=== PATIENT | male | born 1940 | race Caucasian/White ===

== ENCOUNTER → 2017-02-27 | Outpatient (RCR) | payer MEDICARE, OTHER ==
[2016-11-29 10:43] VITALS: BP 120/65; PULSE 82; TEMP 97.3
[2016-11-30 08:05] VITALS: BP 118/51; PULSE 82; TEMP 97.5
[2016-12-04 13:03] VITALS: BP 118/49; PULSE 85; TEMP 98
[2016-12-04 13:12] LABS: HEMATOCRIT 47.9 % (42.0-52.0); HEMOGLOBIN 15.9 g/dl (13.5-18.0); MEAN CELL VOLUME 91 fl (80.0-100.0); MEAN CORPUSCULAR HEMOGLOBIN 30 pg (27.0-31.0); MEAN CORPUSCULAR HGB CONC 33 g/dl (33.0-37.0); MEAN PLATELET VOLUME 11.2 fl (7.4-10.4); PLATELET COUNT 303 K/mm3 (130-400); RED BLOOD COUNT 5.24 M/mm3 (4.20-5.60); REDCELL DISTRIBUTION WIDTH-CV 14.3 % (11.5-14.5)
[2016-12-04 14:22] LABS: BAND 7 % (0-10); LYMPHOCYTE 12 % (20.0-51.0); NEUTROPHILS 79 % (42.0-75.2); PLATELET ESTIMATE NORMAL (NORMAL)
[2016-12-11 13:31] LABS: HEMATOCRIT 39.5 % (42.0-52.0); HEMOGLOBIN 13.3 g/dl (13.5-18.0); MEAN CELL VOLUME 91 fl (80.0-100.0); MEAN CORPUSCULAR HEMOGLOBIN 31 pg (27.0-31.0); MEAN CORPUSCULAR HGB CONC 34 g/dl (33.0-37.0); MEAN PLATELET VOLUME 11.3 fl (7.4-10.4); PLATELET COUNT 160 K/mm3 (130-400); RED BLOOD COUNT 4.36 M/mm3 (4.20-5.60); REDCELL DISTRIBUTION WIDTH-CV 14.6 % (11.5-14.5)
[2016-12-11 13:49] VITALS: BP 118/53; PULSE 81; TEMP 97.5
[2016-12-11 13:57] LABS: BAND 1 % (0-10); LYMPHOCYTE 22 % (20.0-51.0); NEUTROPHILS 62 % (42.0-75.2); NUCLEATED RED BLOOD CELL 1 (0-6)
[2016-12-11 13:58] LABS: PLATELET ESTIMATE NORMAL (NORMAL)
[2016-12-18 13:07] VITALS: BP 111/50; PULSE 69; TEMP 97.3
[2016-12-18 13:21] LABS: ALBUMIN 3.4 gm/dL (3.5-5.0); BILIRUBIN,TOTAL 0.4 mg/dL (0.0-1.0); CREATININE, serum 0.96 mg/dL (0.66-1.25); MAGNESIUM 1.7 mg/dL (1.6-2.3); POTASSIUM 4.2 mmol/L (3.4-5.0); TOTAL PROTEIN 6.7 gm/dL (6.4-8.2)
[2016-12-18 13:24] LABS: HEMATOCRIT 40.8 % (42.0-52.0); HEMOGLOBIN 13.3 g/dl (13.5-18.0); MEAN CELL VOLUME 92 fl (80.0-100.0); MEAN CORPUSCULAR HEMOGLOBIN 30 pg (27.0-31.0); MEAN CORPUSCULAR HGB CONC 33 g/dl (33.0-37.0); MEAN PLATELET VOLUME 10.9 fl (7.4-10.4); PLATELET COUNT 381 K/mm3 (130-400); RED BLOOD COUNT 4.45 M/mm3 (4.20-5.60); REDCELL DISTRIBUTION WIDTH-CV 15.5 % (11.5-14.5)
[2016-12-18 19:10] LABS: BAND 6 % (0-10); EOSINOPHIL 2 % (0-4); LYMPHOCYTE 27 % (20.0-51.0); NEUTROPHILS 58 % (42.0-75.2); PLATELET ESTIMATE NORMAL (NORMAL)
[2016-12-25 13:36] VITALS: BP 104/51; PULSE 75; TEMP 97.3
[2016-12-25 14:14] LABS: HEMOGLOBIN 15.5 g/dl (13.5-18.0); MEAN CELL VOLUME 91 fl (80.0-100.0); MEAN CORPUSCULAR HEMOGLOBIN 30 pg (27.0-31.0); MEAN CORPUSCULAR HGB CONC 33 g/dl (33.0-37.0); MEAN PLATELET VOLUME 11.2 fl (7.4-10.4); PLATELET COUNT 417 K/mm3 (130-400); RED BLOOD COUNT 5.14 M/mm3 (4.20-5.60)
[2016-12-25 15:50] LABS: ANISOCYTOSIS 1+; BAND 1 % (0-10); EOSINOPHIL 2 % (0-4); LYMPHOCYTE 12 % (20.0-51.0); NEUTROPHILS 85 % (42.0-75.2); PLATELET ESTIMATE NORMAL (NORMAL)
[2017-01-01 13:09] VITALS: BP 130/54; PULSE 73; TEMP 97.4
[2017-01-01 13:11] LABS: HEMATOCRIT 39.8 % (42.0-52.0); HEMOGLOBIN 12.9 g/dl (13.5-18.0); MEAN CELL VOLUME 90 fl (80.0-100.0); MEAN CORPUSCULAR HEMOGLOBIN 29 pg (27.0-31.0); MEAN CORPUSCULAR HGB CONC 32 g/dl (33.0-37.0); MEAN PLATELET VOLUME 11.3 fl (7.4-10.4); PLATELET COUNT 144 K/mm3 (130-400); RED BLOOD COUNT 4.41 M/mm3 (4.20-5.60); REDCELL DISTRIBUTION WIDTH-CV 15.2 % (11.5-14.5)
[2017-01-01 13:39] LABS: BAND 3 % (0-10); LYMPHOCYTE 43 % (20.0-51.0); NEUTROPHILS 51 % (42.0-75.2); PLATELET ESTIMATE NORMAL (NORMAL)
[2017-01-01 13:40] LABS: HYPERSEGMENTED POLYS PRESENT
[2017-01-08 13:10] VITALS: BP 111/48; PULSE 67; TEMP 97.2
[2017-01-08 13:25] LABS: HEMATOCRIT 39.4 % (42.0-52.0); HEMOGLOBIN 12.9 g/dl (13.5-18.0); MEAN CELL VOLUME 92 fl (80.0-100.0); MEAN CORPUSCULAR HEMOGLOBIN 30 pg (27.0-31.0); MEAN CORPUSCULAR HGB CONC 33 g/dl (33.0-37.0); MEAN PLATELET VOLUME 11.1 fl (7.4-10.4); PLATELET COUNT 363 K/mm3 (130-400); RED BLOOD COUNT 4.29 M/mm3 (4.20-5.60); REDCELL DISTRIBUTION WIDTH-CV 17.2 % (11.5-14.5)
[2017-01-08 14:10] LABS: BAND 24 % (0-10); EOSINOPHIL 1 % (0-4); LYMPHOCYTE 38 % (20.0-51.0); NEUTROPHILS 32 % (42.0-75.2)
[2017-01-08 14:11] LABS: ANISOCYTOSIS 1+; PLATELET ESTIMATE NORMAL (NORMAL)
[2017-01-15 13:06] VITALS: BP 109/49; PULSE 109; TEMP 97.3
[2017-01-15 13:08] LABS: HEMATOCRIT 40.7 % (42.0-52.0); HEMOGLOBIN 13.3 g/dl (13.5-18.0); MEAN CELL VOLUME 92 fl (80.0-100.0); MEAN CORPUSCULAR HEMOGLOBIN 30 pg (27.0-31.0); MEAN CORPUSCULAR HGB CONC 33 g/dl (33.0-37.0); MEAN PLATELET VOLUME 10.7 fl (7.4-10.4); PLATELET COUNT 372 K/mm3 (130-400); RED BLOOD COUNT 4.41 M/mm3 (4.20-5.60); REDCELL DISTRIBUTION WIDTH-CV 17.7 % (11.5-14.5)
[2017-01-15 13:57] LABS: BAND 22 % (0-10); EOSINOPHIL 1 % (0-4); LYMPHOCYTE 18 % (20.0-51.0); METAMYELOCYTE 1 % (0-0); NEUTROPHILS 48 % (42.0-75.2); PLATELET ESTIMATE NORMAL (NORMAL)
[2017-01-15 13:58] LABS: ANISOCYTOSIS 1+
[2017-01-22 12:55] LABS: HEMATOCRIT 37.4 % (42.0-52.0); HEMOGLOBIN 12.3 g/dl (13.5-18.0); MEAN CELL VOLUME 93 fl (80.0-100.0); MEAN CORPUSCULAR HEMOGLOBIN 31 pg (27.0-31.0); MEAN CORPUSCULAR HGB CONC 33 g/dl (33.0-37.0); MEAN PLATELET VOLUME 11.3 fl (7.4-10.4); PLATELET COUNT 234 K/mm3 (130-400); RED BLOOD COUNT 4.02 M/mm3 (4.20-5.60); REDCELL DISTRIBUTION WIDTH-CV 17.5 % (11.5-14.5)
[2017-01-22 13:00] VITALS: BP 116/50; PULSE 71; TEMP 97.4
[2017-01-22 13:06] LABS: ALBUMIN 3.7 gm/dL (3.5-5.0); BILIRUBIN,TOTAL 0.5 mg/dL (0.0-1.0); CALCIUM 9.4 mg/dL (8.4-10.2); CREATININE, serum 0.85 mg/dL (0.66-1.25); MAGNESIUM 1.8 mg/dL (1.6-2.3); POTASSIUM 4.3 mmol/L (3.4-5.0)
[2017-01-22 13:08] LABS: BAND 7 % (0-10); EOSINOPHIL 1 % (0-4); LYMPHOCYTE 23 % (20.0-51.0); NEUTROPHILS 65 % (42.0-75.2); PLATELET ESTIMATE NORMAL (NORMAL)
[2017-01-22 13:10] LABS: ANISOCYTOSIS 1+; HYPOCHROMIA 1+
[2017-01-29 13:10] VITALS: BP 107/64; PULSE 76; TEMP 97.7
[2017-01-29 13:24] LABS: HEMATOCRIT 41.1 % (42.0-52.0); HEMOGLOBIN 13.7 g/dl (13.5-18.0); MEAN CELL VOLUME 91 fl (80.0-100.0); MEAN CORPUSCULAR HEMOGLOBIN 30 pg (27.0-31.0); MEAN CORPUSCULAR HGB CONC 33 g/dl (33.0-37.0); MEAN PLATELET VOLUME 11.1 fl (7.4-10.4); PLATELET COUNT 237 K/mm3 (130-400); RED BLOOD COUNT 4.51 M/mm3 (4.20-5.60); REDCELL DISTRIBUTION WIDTH-CV 17.1 % (11.5-14.5)
[2017-01-29 14:04] LABS: BAND 5 % (0-10); LYMPHOCYTE 18 % (20.0-51.0); NEUTROPHILS 76 % (42.0-75.2); PLATELET ESTIMATE NORMAL (NORMAL)
[2017-02-05 12:54] VITALS: BP 125/55; PULSE 71; TEMP 97.7
[2017-02-05 12:54] LABS: HEMATOCRIT 37.1 % (42.0-52.0); MEAN CELL VOLUME 94 fl (80.0-100.0); MEAN CORPUSCULAR HEMOGLOBIN 30 pg (27.0-31.0); MEAN CORPUSCULAR HGB CONC 32 g/dl (33.0-37.0); MEAN PLATELET VOLUME 10.9 fl (7.4-10.4); PLATELET COUNT 204 K/mm3 (130-400); RED BLOOD COUNT 3.95 M/mm3 (4.20-5.60); REDCELL DISTRIBUTION WIDTH-CV 17.3 % (11.5-14.5)
[2017-02-05 13:17] LABS: BAND 2 % (0-10); LYMPHOCYTE 38 % (20.0-51.0); NEUTROPHILS 54 % (42.0-75.2); NUCLEATED RED BLOOD CELL 1 (0-6); PLATELET ESTIMATE NORMAL (NORMAL)
[2017-02-05 13:18] LABS: ANISOCYTOSIS 1+; HYPOCHROMIA 1+
[2017-02-12 10:43] VITALS: BP 121/61; PULSE 58; TEMP 97.3
[2017-02-12 10:56] LABS: HEMATOCRIT 38.1 % (42.0-52.0); HEMOGLOBIN 12.4 g/dl (13.5-18.0); MEAN CELL VOLUME 96 fl (80.0-100.0); MEAN CORPUSCULAR HEMOGLOBIN 31 pg (27.0-31.0); MEAN CORPUSCULAR HGB CONC 33 g/dl (33.0-37.0); MEAN PLATELET VOLUME 10.8 fl (7.4-10.4); PLATELET COUNT 456 K/mm3 (130-400); RED BLOOD COUNT 3.98 M/mm3 (4.20-5.60); REDCELL DISTRIBUTION WIDTH-CV 18.6 % (11.5-14.5)
[2017-02-12 11:06] LABS: ALBUMIN 3.8 gm/dL (3.5-5.0); BILIRUBIN,TOTAL 0.4 mg/dL (0.0-1.0); CALCIUM 9.6 mg/dL (8.4-10.2); CREATININE, serum 1.08 mg/dL (0.66-1.25); POTASSIUM 4.4 mmol/L (3.4-5.0); TOTAL PROTEIN 7.2 gm/dL (6.4-8.2)
[2017-02-12 12:04] LABS: BAND 10 % (0-10); EOSINOPHIL 1 % (0-4); LYMPHOCYTE 33 % (20.0-51.0); METAMYELOCYTE 1 % (0-0); NEUTROPHILS 53 % (42.0-75.2); PLATELET ESTIMATE INCREASED (NORMAL)
[2017-02-20 13:09] VITALS: BP 121/64; PULSE 66; TEMP 97.5
[2017-02-20 13:16] LABS: HEMATOCRIT 40.2 % (42.0-52.0); HEMOGLOBIN 13.2 g/dl (13.5-18.0); MEAN CELL VOLUME 96 fl (80.0-100.0); MEAN CORPUSCULAR HEMOGLOBIN 31 pg (27.0-31.0); MEAN CORPUSCULAR HGB CONC 33 g/dl (33.0-37.0); MEAN PLATELET VOLUME 10.7 fl (7.4-10.4); PLATELET COUNT 374 K/mm3 (130-400); RED BLOOD COUNT 4.21 M/mm3 (4.20-5.60); REDCELL DISTRIBUTION WIDTH-CV 17.5 % (11.5-14.5)
[2017-02-20 14:00] LABS: BAND 7 % (0-10); LYMPHOCYTE 19 % (20.0-51.0); NEUTROPHILS 71 % (42.0-75.2); PLATELET ESTIMATE NORMAL (NORMAL)
[2017-02-20 14:01] LABS: ANISOCYTOSIS 1+; HYPOCHROMIA 1+
[~2017-02-27] VITALS: Ht 177.8 cm; Wt 93.6 kg
[~2017-02-27] MED LIST: B-12 500 MCG SL; FOLIC ACID0.4 MG PO; XARELTO10 MG PO
[2017-02-27 13:03] VITALS: BP 105/52; PULSE 74; TEMP 97.4
[2017-02-27 13:08] LABS: HEMATOCRIT 39.4 % (42.0-52.0); HEMOGLOBIN 13.1 g/dl (13.5-18.0); MEAN CELL VOLUME 96 fl (80.0-100.0); MEAN CORPUSCULAR HEMOGLOBIN 32 pg (27.0-31.0); MEAN CORPUSCULAR HGB CONC 33 g/dl (33.0-37.0); MEAN PLATELET VOLUME 11.4 fl (7.4-10.4); PLATELET COUNT 232 K/mm3 (130-400); REDCELL DISTRIBUTION WIDTH-CV 17.1 % (11.5-14.5)
[2017-02-27 13:43] LABS: BAND 5 % (0-10); BASOPHIL 1 % (0-2); LYMPHOCYTE 15 % (20.0-51.0); NEUTROPHILS 74 % (42.0-75.2)
[2017-02-27 13:44] LABS: ANISOCYTOSIS 1+; PLATELET ESTIMATE NORMAL (NORMAL)
[2017-02-27 13:45] LABS: STOMATOCYTE 1+
== END | disposition home or self-care (01) ==
LOC: EUO → EDSTATUS 11-29 10:00 → EUO 11-29 10:00
PROVIDERS: Internal Medicine; Internal Medicine Medical Oncology
DX: C34.90 Malignant neoplasm of unspecified part of unspecified bronchus or lung (principal)
CPT/HCPCS: C1751; J1644

== ENCOUNTER 2017-03-12 13:00 | Outpatient (RCR) | payer MEDICARE, OTHER ==
[2017-03-05 12:59] LABS: HEMATOCRIT 40.2 % (42.0-52.0); HEMOGLOBIN 13.2 g/dl (13.5-18.0); MEAN CELL VOLUME 96 fl (80.0-100.0); MEAN CORPUSCULAR HEMOGLOBIN 32 pg (27.0-31.0); MEAN CORPUSCULAR HGB CONC 33 g/dl (33.0-37.0); MEAN PLATELET VOLUME 11.2 fl (7.4-10.4); PLATELET COUNT 210 K/mm3 (130-400); RED BLOOD COUNT 4.18 M/mm3 (4.20-5.60); REDCELL DISTRIBUTION WIDTH-CV 16.5 % (11.5-14.5)
[2017-03-05 13:06] VITALS: BP 128/112; PULSE 74; TEMP 98.2
[2017-03-05 13:16] LABS: BILIRUBIN,TOTAL 0.4 mg/dL (0.0-1.0); CALCIUM 9.7 mg/dL (8.4-10.2); CREATININE, serum 1.03 mg/dL (0.66-1.25); MAGNESIUM 1.8 mg/dL (1.6-2.3); TOTAL PROTEIN 7.4 gm/dL (6.4-8.2)
[2017-03-05 13:56] LABS: BAND 2 % (0-10); EOSINOPHIL 1 % (0-4); LYMPHOCYTE 17 % (20.0-51.0); NEUTROPHILS 79 % (42.0-75.2); PLATELET ESTIMATE NORMAL (NORMAL)
[2017-03-05 13:57] LABS: ANISOCYTOSIS 1+
[2017-03-12 13:02] VITALS: BP 130/85; PULSE 72; TEMP 98
[2017-03-12 13:02] LABS: HEMATOCRIT 41.5 % (42.0-52.0); HEMOGLOBIN 13.7 g/dl (13.5-18.0); MEAN CELL VOLUME 97 fl (80.0-100.0); MEAN CORPUSCULAR HEMOGLOBIN 32 pg (27.0-31.0); MEAN CORPUSCULAR HGB CONC 33 g/dl (33.0-37.0); MEAN PLATELET VOLUME 11.6 fl (7.4-10.4); PLATELET COUNT 210 K/mm3 (130-400); RED BLOOD COUNT 4.29 M/mm3 (4.20-5.60); REDCELL DISTRIBUTION WIDTH-CV 15.7 % (11.5-14.5)
[2017-03-12 13:19] LABS: BAND 1 % (0-10); LYMPHOCYTE 16 % (20.0-51.0); NEUTROPHILS 79 % (42.0-75.2)
[2017-03-12 13:20] LABS: ANISOCYTOSIS 1+; PLATELET ESTIMATE NORMAL (NORMAL)
[2017-03-12] MEDS ORDERED: FLOMAX 0.40.4 MG/CAP PO (15:55)
[2017-03-12] MEDS ORDERED: ELIQUIS 5MG PO (15:55)
== END 2017-03-12 16:00 | disposition home or self-care (01) ==
LOC: EUO 13:00
PROVIDERS: Internal Medicine Medical Oncology
DX: C34.12 Malignant neoplasm of upper lobe, left bronchus or lung (principal); Z98.890 Other specified postprocedural states
CPT/HCPCS: J1644

== ENCOUNTER 2017-03-12 15:31 | Emergency (ER) | payer MEDICARE, OTHER ==
[~2017-03-12] VITALS: Ht 177.8 cm; Wt 96.4 kg
[2017-03-12 15:32] VITALS: BP 145/64; TEMP 97.8
[2017-03-12] MEDS ORDERED: ELIQUIS 5MG PO (15:55)
[2017-03-12] MEDS ORDERED: FLOMAX 0.40.4 MG/CAP PO (15:55)
[2017-03-12 17:06] VITALS: PULSE 70
== END 2017-03-12 17:07 | disposition home or self-care (01) ==
LOC: COL.ER 15:31
DX: S59.901A Unspecified injury of right elbow, initial encounter (principal); S42.401A Unspecified fracture of lower end of right humerus, initial encounter for closed fracture; E11.9 Type 2 diabetes mellitus without complications; F17.210 Nicotine dependence, cigarettes, uncomplicated; W00.0XXA Fall on same level due to ice and snow, initial encounter; Y92.481 Parking lot as the place of occurrence of the external cause

== ENCOUNTER 2017-03-22 09:33 | Day surgery (SDC) | payer SELFPAY ==
[~2017-03-22] VITALS: Ht 177.8 cm; Wt 92.9 kg
[2017-03-22] VITALS (7 sets, daily range): BP systolic 109–131; BP diastolic 45–58; PULSE 61–71; TEMP 97.1–97.8
[~2017-03-22 09:33] MED LIST changes: +ELIQUIS 5MG PO; +FLOMAX 0.40.4 MG/CAP PO
[2017-03-22] MEDS ORDERED: LOVENOX 3030 MG/0.3 SQ (11:49)
[2017-03-22] MEDS ORDERED: PRINIVIL20 MG PO (11:56)
[2017-03-22] MEDS ORDERED: LOPRESSOR 550 MG/TAB PO (12:03)
[2017-03-22] MEDS ORDERED: SYNTHROID 0.0.025 MG PO (12:08)
[2017-03-22] MEDS ORDERED: K-DUR20 MEQ PO (12:09)
[2017-03-22] MEDS ORDERED: PRAVACHOL80 MG PO (12:10)
[2017-03-22] MEDS ORDERED: GLUCOPHAGE1000 MG PO (12:13)
[2017-03-22] MEDS ORDERED: PROAIR HFA0.09 MG/AC IH (12:14)
[2017-03-22] MEDS ORDERED: ASPIRIN 32325 MG/TAB PO (12:15)
[2017-03-22] MEDS ORDERED: NORVASC 10MG10 MG PO (12:15)
[2017-03-22] MEDS ORDERED: 00186-0370-20 IH (12:16)
[2017-03-22] MEDS ORDERED: HCTZ 25MG TAB25 MG PO (12:17)
[2017-03-22] MEDS ORDERED: NOVOLOG FLEX100 U/ML SQ (12:17)
[2017-03-22] MEDS ORDERED: LANTUS SOLOS100 U/ML SQ (12:18)
[2017-03-22] MEDS ORDERED: NORCO 325 MG-7.1 TAB PO (13:13)
[2017-03-22] MEDS ORDERED: PHENERGAN 25 TA25 MG PO (15:36)
[2017-03-22] MEDS ORDERED: CEPHALEXIN500 M1 PO (15:37)
== END 2017-03-22 16:10 | disposition home or self-care (01) ==
LOC: SDCO 09:33
DX: S52.021A Displaced fracture of olecranon process without intraarticular extension of right ulna, initial encounter for closed fracture (principal); W18.30XA Fall on same level, unspecified, initial encounter; Y92.238 Other place in hospital as the place of occurrence of the external cause; J44.9 Chronic obstructive pulmonary disease, unspecified; E78.00 Pure hypercholesterolemia, unspecified; Z85.118 Personal history of other malignant neoplasm of bronchus and lung; E11.9 Type 2 diabetes mellitus without complications; Z79.4 Long term (current) use of insulin; Z79.82 Long term (current) use of aspirin; F17.210 Nicotine dependence, cigarettes, uncomplicated; Z80.9 Family history of malignant neoplasm, unspecified; Z68.30 Body mass index [BMI] 30.0-30.9, adult; Z86.718 Personal history of other venous thrombosis and embolism
CPT/HCPCS: J1815; J2250; J2405; J2795; J3010; J7030

== ENCOUNTER → 2017-05-14 | Outpatient (CLI) | payer MEDICARE, OTHER ==
[~2017-05-14] MED LIST changes: +00186-0370-20 IH; +ASPIRIN 32325 MG/TAB PO; +CEPHALEXIN500 M1 PO; +GLUCOPHAGE1000 MG PO; +HCTZ 25MG TAB25 MG PO; +K-DUR20 MEQ PO; +LANTUS SOLOS100 U/ML SQ; +LOPRESSOR 550 MG/TAB PO; +LOVENOX 3030 MG/0.3 SQ; +NORCO 325 MG-7.1 TAB PO; +NORVASC 10MG10 MG PO; +NOVOLOG FLEX100 U/ML SQ; +PHENERGAN 25 TA25 MG PO; +PRAVACHOL80 MG PO; +PRINIVIL20 MG PO; +PROAIR HFA0.09 MG/AC IH; +SYNTHROID 0.0.025 MG PO
[2017-05-14 11:41] LABS: ALBUMIN 4.2 gm/dL (3.5-5.0); BILIRUBIN,TOTAL 0.4 mg/dL (0.0-1.0); CALCIUM 9.4 mg/dL (8.4-10.2); CREATININE, serum 0.94 mg/dL (0.66-1.25); HEMATOCRIT 45.3 % (42.0-52.0); HEMOGLOBIN 14.8 g/dl (13.5-18.0); MEAN CELL VOLUME 92 fl (80.0-100.0); MEAN CORPUSCULAR HEMOGLOBIN 30 pg (27.0-31.0); MEAN CORPUSCULAR HGB CONC 33 g/dl (33.0-37.0); MEAN PLATELET VOLUME 11.8 fl (7.4-10.4); PLATELET COUNT 236 K/mm3 (130-400); POTASSIUM 4.7 mmol/L (3.4-5.0); RED BLOOD COUNT 4.95 M/mm3 (4.20-5.60); TOTAL PROTEIN 7.7 gm/dL (6.4-8.2)
[2017-05-14 11:59] LABS: BAND 6 % (0-10); EOSINOPHIL 2 % (0-4); LYMPHOCYTE 18 % (20.0-51.0); NEUTROPHILS 73 % (42.0-75.2); PLATELET ESTIMATE NORMAL (NORMAL)
== END ==
LOC: COL.LAB 10:41
PROVIDERS: Internal Medicine Medical Oncology
DX: C34.12 Malignant neoplasm of upper lobe, left bronchus or lung (principal)

== ENCOUNTER 2018-04-22 23:40 | Inpatient (IN) | payer MEDICARE, OTHER ==
[~2018-04-22] VITALS: Ht 177.8 cm; Wt 80.4 kg
[2018-04-23] VITALS (7 sets, daily range): BP systolic 110–145; BP diastolic 45–76; PULSE 58–94; TEMP 97.4–98.6
[2018-04-23] MEDS ORDERED: NORCO 325 MG-51 TAB PO ×2 (01:52→01:54)
[2018-04-23 02:30] LABS: BASO % 0.2 % (0.0-2.0); GRAN # 21.1 (1.4-6.5); GRAN % 93.2 % (42.2-75.2); HEMOGLOBIN 14.2 g/dl (13.5-18.0); LYMPH # 0.8 (1.2-3.4); LYMPH % 3.6 % (20.0-51.0); MEAN CELL VOLUME 94 fl (80.0-100.0); MEAN CORPUSCULAR HEMOGLOBIN 31 pg (27.0-31.0); MEAN CORPUSCULAR HGB CONC 33 g/dl (33.0-37.0); MEAN PLATELET VOLUME 10.9 fl (7.4-10.4); MONO # 0.6 (0.1-0.6); MONO % 2.5 % (1.7-9.3); PLATELET COUNT 266 K/mm3 (130-400); RED BLOOD COUNT 4.57 M/mm3 (4.20-5.60); REDCELL DISTRIBUTION WIDTH-CV 13.6 % (11.5-14.5)
--- NOTE | 2018-04-23 02:30 | NUR ---
PT ADMITTED TO MEDICAL FLOOR. DAUGHTER AT BEDSIDE. PT WAS ABLE TO TAKE A FEW STEPS TO AMBULATE SHORT DISTANCES. PT PLEASENT AND COOPERATIVE WITH CARES.
[2018-04-23 02:42] LABS: ALBUMIN 3.3 gm/dL (3.5-5.0); BILIRUBIN,TOTAL 0.3 mg/dL (0.0-1.0); CREATININE, serum 0.75 mg/dL (0.66-1.25); POTASSIUM 4.3 mmol/L (3.4-5.0); TOTAL PROTEIN 6.5 gm/dL (6.4-8.2)
[2018-04-23 03:37] LABS: BAND 16 % (0-10); HYPOCHROMIA 2+; LYMPHOCYTE 5 % (20.0-51.0); NEUTROPHILS 75 % (42.0-75.2); PLATELET ESTIMATE NORMAL (NORMAL)
--- NOTE | 2018-04-23 06:15 | NUR ---
PT HASNT VOICED ANY ISSUES OR CONSERNS. HAS BEEN RESTING. IV FLUIDS INFUSING WITHOUT ISSUE. FSBS REMAINING ELEVATED, COLOR CHECKER ROVING OR YARN ALISSA NOTIFIED OF LEVEL, STATED THAT SHE DIDNT WANT ANY INTERVENTIONS AT THIS TIME.
--- NOTE | 2018-04-23 11:41 | NUR ---
0730 pt alert oriented x4, resting in bed. shift assessment completed IV site to Rt A.C. patent NS @125ml/hr. Pt c/o pain 03/07, as generalized discomfort. Denies the need for pain medication. 1000 Physical therapy here to see pt. Pt tolerates activiety well, sitting in recline. 1130 Assesment unchanged, pt alert, visiting with family. Levamir initiated as ordered. Pt voices no acute concerns. Concerns reported off to Dm Joseph
--- NOTE | 2018-04-23 13:06 | NUR ---
SW attended clinical rounding and met with patient and family to discuss discharge planning. Patient is currently placed at [facility] for a skilled stay after a hip surgery. He reports he was supposed to be discharged this so if he is able he would like to go home from here. They are willing to return to [place] if he is too weak to go home. [facility] he has been [facility] and he obtains his medications at [facility] in . Family would like [facility] to continue to be updated during his stay here. SW called [facility] and provided update. they will also fax a copy of patients DPOA. SW will continue to follow.
--- NOTE | 2018-04-24 05:09 | NUR ---
PT HAD UNEVENTFUL NOC. IV FLUIDS INFUSING WITHOUT ISSUES. NO CONSERNS OR ISSUES VOICED. DAUGHTER AT BEDSIDE. BLOOD SUGARS DECREASING IN ELEVATION.
[2018-04-24 05:14] VITALS: BP 122/46; PULSE 65; TEMP 97.5
--- NOTE | 2018-04-24 07:00 | NUR ---
THIS MORING PTS FSBS WAS 41, PT WAS A&O X3. THIS NURSE ADMINISTERED GLUCLOSE ORAL GEL AT 0600 PRE HYPOGLYCEMIC PROTOCOL, NOTIFIED BRENDA ROSE. MILTON HAD THIS NURSE RECECK FSBS 15MINS AFTER GLUCLOSE GEL. PT FSBS WAS 58 AT THIS TIME. MILTON HAD THIS NURSE ADMINSITER DEXTROSE SYRINGE OF 12.5GM PER PROTOCOL. PT FSBS WAS RECHECKED AT 0700, PTS FSBS WAS 96 AT THIS TIME. NO OTHER ISSUES OR CONSERNS VOICED. FAMILY AT BEDSIDE AND INFORMED OF THE SITUATION AND THE INTERVENTIONS TAKEN.
[2018-04-24 07:47] VITALS: BP 117/48; PULSE 60; TEMP 98
[2018-04-24 09:18] LABS: BASO # 0.1 (0.0-0.2); BASO % 0.5 % (0.0-2.0); EOS # 0.1 (0.0-0.7); EOS % 0.7 % (0-4.0); GRAN # 16.7 (1.4-6.5); GRAN % 83.8 % (42.2-75.2); HEMATOCRIT 41.5 % (42.0-52.0); HEMOGLOBIN 13.9 g/dl (13.5-18.0); LYMPH # 1.5 (1.2-3.4); LYMPH % 7.6 % (20.0-51.0); MEAN CELL VOLUME 95 fl (80.0-100.0); MEAN CORPUSCULAR HEMOGLOBIN 32 pg (27.0-31.0); MEAN CORPUSCULAR HGB CONC 34 g/dl (33.0-37.0); MEAN PLATELET VOLUME 11.2 fl (7.4-10.4); MONO # 1.4 (0.1-0.6); MONO % 6.8 % (1.7-9.3); PLATELET COUNT 268 K/mm3 (130-400); RED BLOOD COUNT 4.39 M/mm3 (4.20-5.60); REDCELL DISTRIBUTION WIDTH-CV 13.8 % (11.5-14.5)
[2018-04-24 09:23] LABS: CREATININE, serum 0.75 mg/dL (0.66-1.25); POTASSIUM 3.7 mmol/L (3.4-5.0)
[2018-04-24 10:55] VITALS: BP 125/46; PULSE 68; TEMP 98.3
--- NOTE | 2018-04-24 11:12 | NUR ---
pt resting in bed Assessment completed, O2 on @ 2l via NC. Breath sounds clear. Pt has non-productive cough No SOB noted. IV site patent Right AC NS @ 75ml/hr. Denies c/o pain. Family at side Glucose 96 noted. 0930 Glucose 183, Levamir given as ordered Physical therapy with pt and he is tolerating activities well. No complants noted at this time
--- NOTE | 2018-04-24 11:24 | NUR ---
Glucose noted 241, Notifed Isaias ALCANTARA he will initiate and give Insulin at 1200 VSS Pt alert and oriented x3 visiting with family. Reported off to Isaias ALCANTARA.
--- NOTE | 2018-04-24 14:09 | NUR ---
LELO faxed updated to [facility].
[2018-04-24 15:55] VITALS: BP 118/43; PULSE 64; TEMP 97.4
--- NOTE | 2018-04-24 18:39 | NUR ---
Pt has been resting on and off throughout the day. He has remained free of pain. New IV started to the pt's R thumb. Has had family members at the bedside; all questions answered. Pt is sitting up in the chair at this time and he denies further needs. Call light within reach.
--- NOTE | 2018-04-24 19:04 | NUR ---
Report given to MARICRUZ Dyson.
[2018-04-24 19:25] VITALS: BP 128/45; PULSE 72; TEMP 97.3
[2018-04-24 22:33] VITALS: BP 130/43; PULSE 75; TEMP 98.4
--- NOTE | 2018-04-25 01:42 | NUR ---
Patient has been denying having pain and discomfort. Alert and oriented. Denies having any needs. Wearing oxygen at 2 L/min via NC. Has productive cough, unable to observe sputum. Continues on droplet isolation for pending RSV. Denies having SOB and dyspnea. NS running at 100 ml/hr to IV in right hand, by thumb. Heart with regular rate and rhythm. Capillary refill less than 3 seconds. No edema noted. 2 sutures to surgical incision site on right hip. Area is open to air. Denies pain and discomfort to area. Site is without redness, warmth, drainage, and swelling. Has been using urinal in bed. Staff checks to see if it needs emptied, and patient also calls when it needs emptied. Bowel sounds hypoactive. Reported it has been about 3 days since his last BM, but it is not unusual for him to go 5 days without a BM. Resting in bed with eyes closed at this time. Call light is within reach.
[2018-04-25 03:33] VITALS: BP 127/80; PULSE 79; TEMP 98.6
--- NOTE | 2018-04-25 13:30 | NUR ---
attempted lab drawn 2 with number 24 butterfly left forearm with blood return however unable to obtain sample. Primary care nurse nurse informed of unable to obtain lab samples.
--- NOTE | 2018-04-25 13:40 | NUR ---
Initial visit; Family thanked [employer] for looking in on them and offering God's blessings to Praful and all family.
[2018-04-26] VITALS (1116 sets, daily range): BP systolic 108–109; BP diastolic 47–52; PULSE 69–78; TEMP 97.8–101; O2SAT 85–99
--- NOTE | 2018-04-26 12:42 | NUR ---
Follow up; spoke with family, letting them know continues to have Praful and them in her thoughts and prayers. They thanked for looking in on them.
--- NOTE | 2018-04-26 13:49 | NUR ---
transportation engineering technician in room for ECHO.
[2018-04-26 14:09] LABS: COLLECTION METHOD CATHETER
[2018-04-26 14:16] LABS: CALCIUM 8.3 mg/dL (8.4-10.2); CREATININE, serum 0.8 mg/dL (0.66-1.25); POTASSIUM 3.8 mmol/L (3.4-5.0)
[2018-04-26 14:20] LABS: BASO % 0.4 % (0.0-2.0); EOS % 0.3 % (0-4.0); GRAN # 7.1 (1.4-6.5); GRAN % 88.5 % (42.2-75.2); HEMATOCRIT 39.4 % (42.0-52.0); HEMOGLOBIN 13.1 g/dl (13.5-18.0); LYMPH # 0.6 (1.2-3.4); LYMPH % 7.3 % (20.0-51.0); MEAN CELL VOLUME 94 fl (80.0-100.0); MEAN CORPUSCULAR HEMOGLOBIN 31 pg (27.0-31.0); MEAN CORPUSCULAR HGB CONC 33 g/dl (33.0-37.0); MONO # 0.2 (0.1-0.6); MONO % 2.4 % (1.7-9.3); PLATELET COUNT 224 K/mm3 (130-400); RED BLOOD COUNT 4.21 M/mm3 (4.20-5.60); REDCELL DISTRIBUTION WIDTH-CV 13.8 % (11.5-14.5)
[2018-04-26 14:26] LABS: CALCIUM 8.9 mg/dL (8.4-10.2); CREATININE, serum 0.95 mg/dL (0.66-1.25); POTASSIUM 4.2 mmol/L (3.4-5.0)
[2018-04-26 14:42] LABS: ALBUMIN 3.1 gm/dL (3.5-5.0); BILIRUBIN,TOTAL 0.4 mg/dL (0.0-1.0); CALCIUM 8.4 mg/dL (8.4-10.2); CREATININE, serum 0.88 mg/dL (0.66-1.25); POTASSIUM 3.6 mmol/L (3.4-5.0); TOTAL PROTEIN 5.9 gm/dL (6.4-8.2)
--- NOTE | 2018-04-26 15:14 | NUR ---
LELO and LELO student met with the patient, patient's son (Omi), his aswbrerv-li-brt (Kristin), and the patient's granddaughter (Tiffanie) to review discharge plan. The patient's son and granddaughter report that they would now like for the patient to return back to [facility] upon discharge. LELO presented and explained the patient choice form. The patient's granddaughter signed and she was provided a copy. LELO then contacted and faxed updates to Antelmo at [facility]. Antelmo reports that they can accept the patient back. The patient's granddaughter also provided LELO with a copy of the patient's advanced directives. LELO placed the copy in the patient's chart. LELO to continue to follow. [facility] ph#[phone] fax#[phone]
[2018-04-26 15:36] LABS: BASO % 0.4 % (0.0-2.0); EOS # 0.1 (0.0-0.7); EOS % 0.8 % (0-4.0); GRAN # 8.7 (1.4-6.5); HEMATOCRIT 37.6 % (42.0-52.0); HEMOGLOBIN 12.5 g/dl (13.5-18.0); LYMPH % 8.9 % (20.0-51.0); MEAN CELL VOLUME 95 fl (80.0-100.0); MEAN CORPUSCULAR HEMOGLOBIN 32 pg (27.0-31.0); MEAN CORPUSCULAR HGB CONC 33 g/dl (33.0-37.0); MEAN PLATELET VOLUME 11.6 fl (7.4-10.4); MONO # 1.1 (0.1-0.6); MONO % 9.5 % (1.7-9.3); PLATELET COUNT 214 K/mm3 (130-400); RED BLOOD COUNT 3.97 M/mm3 (4.20-5.60); REDCELL DISTRIBUTION WIDTH-CV 13.7 % (11.5-14.5)
[2018-04-26 15:43] LABS: ARTERIAL BLD GAS O2 SATURATION 91.5 % (92-100); ARTERIAL BLD GAS TCO2 CT 27.8; ARTERIAL BLOOD GAS BASE EXCESS 1.9 (-2-2); ARTERIAL BLOOD GAS HCO3 26.6 meq/L (22-26); ARTERIAL BLOOD GAS PCO2 41.6 mmHg (35-45); ARTERIAL BLOOD GAS PO2 64.1 mmHg (80-100); ARTERIAL BLOOD GAS pH 7.42 (7.35-7.45)
[2018-04-26 16:29] LABS: ARTERIAL BLOOD GAS HCO3 26.4 meq/L (22-26); ARTERIAL BLOOD GAS PCO2 36.1 mmHg (35-45); ARTERIAL BLOOD GAS PO2 59.4 mmHg (80-100); ARTERIAL BLOOD GAS pH 7.48 (7.35-7.45)
[2018-04-26 16:30] LABS: ARTERIAL BLOOD GAS BASE EXCESS 3.1 (-2-2)
[2018-04-26 16:39] LABS: HEMATOCRIT 37.3 % (42.0-52.0); HEMOGLOBIN 12.5 g/dl (13.5-18.0); MEAN CELL VOLUME 95 fl (80.0-100.0); MEAN CORPUSCULAR HEMOGLOBIN 32 pg (27.0-31.0); MEAN CORPUSCULAR HGB CONC 34 g/dl (33.0-37.0); MEAN PLATELET VOLUME 11.2 fl (7.4-10.4); PLATELET COUNT 225 K/mm3 (130-400); RED BLOOD COUNT 3.94 M/mm3 (4.20-5.60); REDCELL DISTRIBUTION WIDTH-CV 13.5 % (11.5-14.5)
[2018-04-26 16:40] LABS: BAND 7 % (0-10); LYMPHOCYTE 9 % (20.0-51.0); MYELOCYTE 1 % (0-0); NEUTROPHILS 80 % (42.0-75.2); PLATELET ESTIMATE NORMAL (NORMAL)
[2018-04-26 16:43] LABS: MUCOUS Present /lpf; PH 5 (5-8); SQUAMOUS EPITHELIAL None Seen /hpf; URINE APPEARANCE Clear; URINE BACTERIA None Seen /hpf; URINE BILIRUBIN Negative (NEGATIVE); URINE BLOOD Negative (NEGATIVE); URINE COLOR Yellow; URINE GLUCOSE 2+ (NEGATIVE); URINE KETONE Negative (NEGATIVE); URINE LEUKOCYTE ESTERASE Negative (NEGATIVE); URINE NITRATE Negative (NEGATIVE); URINE PROTEIN(semi-quant) Negative (NEGATIVE); URINE UROBILINOGEN Negative (NEGATIVE)
[2018-04-26 16:55] LABS: CALCIUM 8.2 mg/dL (8.4-10.2); CREATININE, serum 0.94 mg/dL (0.66-1.25); MAGNESIUM 1.9 mg/dL (1.6-2.3); PHOSPHOROUS 3.7 mg/dL (2.5-4.5); POTASSIUM 3.7 mmol/L (3.4-5.0)
--- NOTE | 2018-04-26 17:10 | NUR ---
Insulin gtt started at 5 units/hr, verified by Eileen AVILA.
--- NOTE | 2018-04-26 18:08 | NUR ---
Blood glucose 376, 10 units IV push given, gtt increased to 3 units/hr verified by Eileen AVILA.
--- NOTE | 2018-04-26 18:32 | NUR ---
Patient resting in bed, visiting with family.
--- NOTE | 2018-04-26 19:00 | NUR ---
Bedside report given to MARICRUZ Casillas, all gtts and lines verified at this time.
--- NOTE | 2018-04-26 20:18 | NUR ---
Patient assessment completed at this time, please see documentation for details. Patient resting in bed at this time, family just left for the evening. All questions and concerns addressed at shift change with family, this nurse and MARICRUZ Mauro. Will continue to monitor and assess.
[2018-04-27] VITALS (1432 sets, daily range): BP systolic 111–132; BP diastolic 50–56; PULSE 54–69; TEMP 97.5–98.6; O2SAT 86–100
--- NOTE | 2018-04-27 00:11 | NUR ---
pt is on 5lnc sats are 91% changed to 6Lhfnc sats came up to 93%
[2018-04-27 05:12] LABS: ARTERIAL BLD GAS O2 SATURATION 93.2 % (92-100); ARTERIAL BLD GAS TCO2 CT 27.2; ARTERIAL BLOOD GAS BASE EXCESS 2.2 (-2-2); ARTERIAL BLOOD GAS HCO3 26.1 meq/L (22-26); ARTERIAL BLOOD GAS PCO2 38.1 mmHg (35-45); ARTERIAL BLOOD GAS PO2 66.6 mmHg (80-100); ARTERIAL BLOOD GAS pH 7.45 (7.35-7.45)
[2018-04-27 05:13] LABS: BASO % 0.1 % (0.0-2.0); EOS % 0.3 % (0-4.0); GRAN # 8.1 (1.4-6.5); GRAN % 80.7 % (42.2-75.2); HEMOGLOBIN 12.1 g/dl (13.5-18.0); LYMPH # 1.1 (1.2-3.4); LYMPH % 11.3 % (20.0-51.0); MEAN CELL VOLUME 94 fl (80.0-100.0); MEAN CORPUSCULAR HEMOGLOBIN 32 pg (27.0-31.0); MEAN CORPUSCULAR HGB CONC 34 g/dl (33.0-37.0); MEAN PLATELET VOLUME 10.9 fl (7.4-10.4); MONO # 0.7 (0.1-0.6); MONO % 6.8 % (1.7-9.3); PLATELET COUNT 242 K/mm3 (130-400); RED BLOOD COUNT 3.79 M/mm3 (4.20-5.60); REDCELL DISTRIBUTION WIDTH-CV 13.4 % (11.5-14.5)
[2018-04-27 05:18] LABS: HEMATOCRIT 35.5 % (42.0-52.0)
[2018-04-27 05:24] LABS: CALCIUM 8.4 mg/dL (8.4-10.2); CREATININE, serum 0.73 mg/dL (0.66-1.25); MAGNESIUM 1.9 mg/dL (1.6-2.3); PHOSPHOROUS 3.3 mg/dL (2.5-4.5)
[2018-04-27 05:47] LABS: POTASSIUM 2.9 mmol/L (3.4-5.0)
--- NOTE | 2018-04-27 07:05 | NUR ---
Bedside report received from MARICRUZ Casillas.
--- NOTE | 2018-04-27 07:16 | NUR ---
Bedside received from MARICRUZ Casillas.
--- NOTE | 2018-04-27 07:40 | NUR ---
Assessment complete, patient resting in bed, assisted in ordering breakfast, denies other needs at this time, call light within reach.
--- NOTE | 2018-04-27 07:56 | NUR ---
Dr. Houston in speaking to family.
--- NOTE | 2018-04-27 09:00 | NUR ---
Blood glucose 269, 3 units IV push given, gtt increased to 3 units/hr, both verified by MARICRUZ Dowling.
--- NOTE | 2018-04-27 09:12 | NUR ---
PT here to see patient.
--- NOTE | 2018-04-27 10:02 | NUR ---
Blood glucose 298, 3 units IV push, insulin gtt increased to 4 units/hr, both verified by MARICRUZ Dowling.
--- NOTE | 2018-04-27 11:09 | NUR ---
Blood glucose 248, 2 units IV push given, insulin gtt increased to 5 units/hr, both verified by MARICRUZ Dowling.
--- NOTE | 2018-04-27 12:27 | NUR ---
Dr. Almanzar called with ECHO results, EF 60-65, RV 43-45, RV/RA "normal in size."
--- NOTE | 2018-04-27 13:00 | NUR ---
BS 241, 2 units push, insulin gtt increased to 6 units/hr, both verified by MARICRUZ Dowling.
--- NOTE | 2018-04-27 15:49 | NUR ---
Report given to ViviRN care turned over at this time.
--- NOTE | 2018-04-27 17:14 | NUR ---
Insulin increase verified by Josey Curry RN
--- NOTE | 2018-04-27 20:05 | NUR ---
Patient assessment completed and charted at this time, please see documentation for details. Patient resting in bed, call light within in reach. Will continue to monitor and assess.
[2018-04-28] VITALS (893 sets, daily range): BP systolic 100–138; BP diastolic 44–71; PULSE 60–95; TEMP 97.7–102.6; O2SAT 84–100
[2018-04-28 05:30] LABS: BASO % 0.1 % (0.0-2.0); GRAN # 17.6 (1.4-6.5); GRAN % 89.7 % (42.2-75.2); HEMATOCRIT 37.5 % (42.0-52.0); HEMOGLOBIN 12.8 g/dl (13.5-18.0); LYMPH # 0.9 (1.2-3.4); LYMPH % 4.5 % (20.0-51.0); MEAN CELL VOLUME 92 fl (80.0-100.0); MEAN CORPUSCULAR HEMOGLOBIN 32 pg (27.0-31.0); MEAN CORPUSCULAR HGB CONC 34 g/dl (33.0-37.0); MEAN PLATELET VOLUME 10.8 fl (7.4-10.4); MONO % 5.1 % (1.7-9.3); PLATELET COUNT 251 K/mm3 (130-400); RED BLOOD COUNT 4.06 M/mm3 (4.20-5.60); REDCELL DISTRIBUTION WIDTH-CV 13.5 % (11.5-14.5)
[2018-04-28 05:41] LABS: CREATININE, serum 0.61 mg/dL (0.66-1.25); MAGNESIUM 1.8 mg/dL (1.6-2.3); PHOSPHOROUS 2.6 mg/dL (2.5-4.5)
[2018-04-28 05:43] LABS: POTASSIUM 2.7 mmol/L (3.4-5.0)
--- NOTE | 2018-04-28 07:10 | NUR ---
Report recieved from Vinny ALCANTARA. Drips verified per orders. Patient resting quietly but awakens easily. Denies needs at this time. Call light at side
--- NOTE | 2018-04-28 07:46 | NUR ---
NPC, COARSE BS ALONG WITH WHEEZING
--- NOTE | 2018-04-28 11:05 | NUR ---
No titrate on insulin drip at this time. Awaiting orders to D/C Insulin drip per Dr. Houston's approval.
--- NOTE | 2018-04-28 17:19 | NUR ---
Report called to Kristie ALCANTARA on surgical floor. Will transfer patient after giving 1700 insulin
--- NOTE | 2018-04-28 17:50 | NUR ---
Transferred to Room 342 via wheelchair with family at side. On arrival to room SpO2 92% RA and after transfer to reclining chair, SpO2 88% room air. O2 placed on at 3 L/HFNC
--- NOTE | 2018-04-28 18:15 | NUR ---
Sitting up in recliner chair without complaint. O2 on per high flow nasal cannula. VSS. IV antibiotic infusing per PICC. Family here.
--- NOTE | 2018-04-28 21:00 | NUR ---
Patient assisted to bed with 1 assist. Mild shortness of breath with activity, resolves with rest. Has oxygen on at 2L/NC. Lungs are diminished bilaterally to lower lobes, no cough noted. Patient is alert and oriented x3. Denies use of oxygen at home. Has right PICC line with antibiotic infusing without redness or swelling. Has parmar to BSD with yellow urine, catheter care provided. Has 2+ edema to right lower leg. Has vascular changes to left lower leg with large scar on his quiroz and dry flaky skin noted. Reports injury in [place]. Denies pain. Re-oriented on bed controls and call light. Will monitor for changes.
--- NOTE | 2018-04-28 23:35 | NUR ---
Medicated with Tylenol 650mg for general discomfort and fever.
[2018-04-29 02:00] VITALS: TEMP 101.1
--- NOTE | 2018-04-29 02:00 | NUR ---
Recheck of temp is 101.1. IV Zosyn connected and infusing to right PICC without redness or swelling. Patient resting well, has oxygen on at 2L/hi isaias cannula.
[2018-04-29 03:17] VITALS: BP 117/51; PULSE 82; TEMP 100.4
--- NOTE | 2018-04-29 04:00 | NUR ---
Patient's temp 100.4 orally. Offers no concerns at this time.
[2018-04-29 06:05] LABS: ARTERIAL BLD GAS O2 SATURATION 90.8 % (92-100); ARTERIAL BLD GAS TCO2 CT 30.6; ARTERIAL BLOOD GAS BASE EXCESS 5.9 (-2-2); ARTERIAL BLOOD GAS HCO3 29.5 meq/L (22-26); ARTERIAL BLOOD GAS PCO2 38.9 mmHg (35-45); ARTERIAL BLOOD GAS PO2 57.1 mmHg (80-100)
[2018-04-29 06:10] LABS: HEMOGLOBIN 12.5 g/dl (13.5-18.0); MEAN CELL VOLUME 93 fl (80.0-100.0); MEAN CORPUSCULAR HEMOGLOBIN 32 pg (27.0-31.0); MEAN CORPUSCULAR HGB CONC 34 g/dl (33.0-37.0); MEAN PLATELET VOLUME 11.4 fl (7.4-10.4); PLATELET COUNT 237 K/mm3 (130-400); RED BLOOD COUNT 3.95 M/mm3 (4.20-5.60); REDCELL DISTRIBUTION WIDTH-CV 13.9 % (11.5-14.5)
[2018-04-29 06:14] LABS: HEMATOCRIT 36.6 % (42.0-52.0)
[2018-04-29 06:20] LABS: CREATININE, serum 0.72 mg/dL (0.66-1.25); MAGNESIUM 1.8 mg/dL (1.6-2.3); PHOSPHOROUS 2.7 mg/dL (2.5-4.5); POTASSIUM 3.7 mmol/L (3.4-5.0)
[2018-04-29 08:02] LABS: BAND 7 % (0-10); LYMPHOCYTE 5 % (20.0-51.0); NEUTROPHILS 88 % (42.0-75.2)
[2018-04-29 08:03] LABS: ANISOCYTOSIS 1+; PLATELET ESTIMATE NORMAL (NORMAL)
[2018-04-29 08:32] VITALS: BP 121/48; PULSE 92; TEMP 98.5
--- NOTE | 2018-04-29 11:39 | NUR ---
SW attended clinical rounds. Patient and family report discharge plan is to go to [facility] if it is needed. SW will continue to follow.
[2018-04-29 12:02] VITALS: BP 134/52; PULSE 69; TEMP 98
--- NOTE | 2018-04-29 12:30 | NUR ---
Patient sat up in the chair for a little while. He denies pain and nausea. Family has been at bedside. He walked with therapy and does ok but does get short of breath. He has been able to collect a sputum for culture yet. No other changes at this time. Call light within reach.
--- NOTE | 2018-04-29 12:31 | NUR ---
First visit from the manufacturing business analyst. No needs right now.
[2018-04-29 15:44] VITALS: BP 114/43; PULSE 75; TEMP 98.4
--- NOTE | 2018-04-29 19:00 | NUR ---
Patient has been sitting up most the afternoon. Serrano catheter discontinued. Exoplained we still need to monitor his urine output. He verbalized understanding. Still denies pain and nausea. Family at bedside. They have been with they patient all day. No other changes at this time. Call light within reach.
[2018-04-29 20:10] VITALS: BP 116/50; PULSE 62; TEMP 98.5
--- NOTE | 2018-04-29 21:08 | NUR ---
Pt resting in bed watching TV and napping, shift assessment complete, left Pt call light in reach, bed in lowest position.
[2018-04-30 00:30] VITALS: BP 128/59; PULSE 76; TEMP 98.7
--- NOTE | 2018-04-30 05:32 | NUR ---
Pt has been sleeping well during the night, no C/O pain, VS have remained stable.
[2018-04-30 05:59] LABS: HEMATOCRIT 37.1 % (42.0-52.0); HEMOGLOBIN 12.3 g/dl (13.5-18.0); MEAN CELL VOLUME 94 fl (80.0-100.0); MEAN CORPUSCULAR HEMOGLOBIN 31 pg (27.0-31.0); MEAN CORPUSCULAR HGB CONC 33 g/dl (33.0-37.0); MEAN PLATELET VOLUME 11.3 fl (7.4-10.4); PLATELET COUNT 230 K/mm3 (130-400); RED BLOOD COUNT 3.95 M/mm3 (4.20-5.60)
[2018-04-30 06:11] LABS: CALCIUM 8.2 mg/dL (8.4-10.2); CREATININE, serum 0.75 mg/dL (0.66-1.25); POTASSIUM 4.1 mmol/L (3.4-5.0)
--- NOTE | 2018-04-30 06:30 | NUR ---
Reported on to MARICRUZ Willett.
[2018-04-30 06:47] LABS: LYMPHOCYTE 2 % (20.0-51.0); NEUTROPHILS 97 % (42.0-75.2); POLYCHROMASIA 1+
[2018-04-30 06:48] LABS: PLATELET ESTIMATE NORMAL (NORMAL)
[2018-04-30 07:20] VITALS: BP 136/63; PULSE 87; TEMP 99
--- NOTE | 2018-04-30 07:20 | NUR ---
Shift assessment completed. O2Sat 84% on 4L by nasal cannula. SO with labored breathing. Lung sounds are shallow with wheezing on expiratio. Dry coughing. 22R. Skin is very scaly and flaky, especially on L lower leg. PICC line in R upper arm, intact with no redness or complaints of pain. Last BM was 8 days ago.
--- NOTE | 2018-04-30 07:32 | NUR ---
Sat pt up in bed, HOB 90 degrees. Readjusted nasal cannula. O2Sat 90%. Skin behind ears is CDI.
--- NOTE | 2018-04-30 09:30 | NUR ---
Pt worked with PT. Pt is weak and easily tired upon exertion. Labored breathing is more intense with activity.
[2018-04-30 11:00] VITALS: BP 116/49; PULSE 71; TEMP 97.9
--- NOTE | 2018-04-30 11:37 | NUR ---
Reported off to MARICRUZ Willett.
[2018-04-30 16:55] VITALS: BP 112/51; PULSE 65; TEMP 97.5
[2018-04-30 19:20] VITALS: BP 125/53; PULSE 64; TEMP 98
--- NOTE | 2018-04-30 19:50 | NUR ---
Shift assessment complete. Pt resting in bed, awake, a&o, cooperative c cares. Pt denies pain or any other c/o at this time. O2 per NC. PICC noted to R upper arm, patent c good blood return. Pt denies needs. Call light in reach, bed alarm on. Will monitor.
[2018-04-30 23:27] VITALS: BP 120/71; PULSE 72; TEMP 98.4
[2018-05-01 03:15] VITALS: BP 124/58; PULSE 87; TEMP 99.1
[2018-05-01 06:09] LABS: HEMATOCRIT 39.3 % (42.0-52.0); HEMOGLOBIN 13.4 g/dl (13.5-18.0); MEAN CELL VOLUME 93 fl (80.0-100.0); MEAN CORPUSCULAR HEMOGLOBIN 32 pg (27.0-31.0); MEAN CORPUSCULAR HGB CONC 34 g/dl (33.0-37.0); MEAN PLATELET VOLUME 11.2 fl (7.4-10.4); PLATELET COUNT 258 K/mm3 (130-400); RED BLOOD COUNT 4.23 M/mm3 (4.20-5.60)
[2018-05-01 06:21] LABS: CALCIUM 8.2 mg/dL (8.4-10.2); CREATININE, serum 0.68 mg/dL (0.66-1.25)
--- NOTE | 2018-05-01 07:01 | NUR ---
Pt resting in bed, condition unchanged. Pt has rested well this shift c very few needs though he states he did not sleep much. No needs at this time. Call light in reach, bed alarm on. Bedside shift report given to Lauren ALCANTARA to assume pt cares.
[2018-05-01 07:41] VITALS: BP 135/51; PULSE 69; TEMP 100.3
--- NOTE | 2018-05-01 08:30 | NUR ---
PICC intact right upper arm with sterile dressing change done with insertion site cleansed with chloraprep x 1, impregnated chlorhexidine disk applied, skin prep, stat lock, and tegaderm applied. no signs or symptoms of IV complications noted. no concerns voiced. re-wrapped with aby to protect catheter.
--- NOTE | 2018-05-01 08:44 | NUR ---
PT IN BED WITH HOB ELEVATED TO 45 DEGREE ANGLE. PT DENIES PAIN OR DISCOMFORT. PT HAS NOT HAD BOWEL MOVEMENT FOR 8 DAYS. MIRALAX GIVEN TO PT. PT'S LS ARE COARSE THROUGHOUT. PT HAS O2 ON AT 4L/NC. PT DENIES SOB AND NO LABORED RESP. PT HAS NO NEEDS AT THIS TIME CALL LIGHT IN REACH, AND BED ALARM ON.
[2018-05-01 09:19] LABS: BAND 23 % (0-10); LYMPHOCYTE 13 % (20.0-51.0); NEUTROPHILS 59 % (42.0-75.2)
[2018-05-01 09:21] LABS: PLATELET ESTIMATE NORMAL (NORMAL)
--- NOTE | 2018-05-01 10:22 | NUR ---
PT/OT ADVISED THAT SHE HAD GOTTEN PT TO WALK A LITTLE IN ROOM AND RT CALLED TO ASSIST WITH INCENTIVE SPIROMETER INSTRUCTIONS. PT HAS FAMILY IN ROOM WITH HIM AT THIS TIME. PT DENIES PAIN OR DISCOMFORT AND IS A/O X4. CHAIR ALARM ON AND CALL LIGHT WITHIN REACH.
[2018-05-01 11:33] VITALS: BP 98/45; PULSE 74; TEMP 97.5
--- NOTE | 2018-05-01 14:19 | NUR ---
DR. TPITON CALLED AND REPORT WAS GIVEN TO HIM. DR. TIPTON ADVISED WILL JUST CONTINUE TO MONITOR AT THIS TIME AND NO NEW ORDERS.
[2018-05-01 14:53] LABS: PH 6 (5-8); SQUAMOUS EPITHELIAL 0-2 /hpf; URINE APPEARANCE Clear; URINE BACTERIA None Seen /hpf; URINE BILIRUBIN Negative (NEGATIVE); URINE BLOOD 3+ (NEGATIVE); URINE COLOR Yellow; URINE GLUCOSE 2+ (NEGATIVE); URINE KETONE Negative (NEGATIVE); URINE LEUKOCYTE ESTERASE Negative (NEGATIVE); URINE NITRATE Negative (NEGATIVE); URINE PROTEIN(semi-quant) Negative (NEGATIVE); URINE RBC >50 /hpf
[2018-05-01 15:20] LABS: COLLECTION METHOD CLEAN CATCH
[2018-05-01 15:44] VITALS: BP 106/48; PULSE 82; TEMP 98.4
[2018-05-01 21:57] VITALS: BP 114/54; PULSE 56; TEMP 98.5
--- NOTE | 2018-05-01 22:40 | NUR ---
PT resting in bed A+Ox4. reports no pain. osei reports " he may lie about pain to be able to go home sooner". pt reports no SOA. Blood sugar 161. left leg- skin is dry, old wounds no open wounds noted. pt voiding. lungs- fine crackles throughout. no needs at this time. call light in reach
[2018-05-02 00:11] VITALS: BP 121/94; PULSE 75; TEMP 98.1
--- NOTE | 2018-05-02 00:18 | NUR ---
pt nuero checks have no change- pt had difficulty lefting right leg d/t lucien. no needs at this time. call light in reach
--- NOTE | 2018-05-02 01:30 | NUR ---
pt resting in bed, A+Ox4. linens dry. no pain. no needs at this time. call light in reach
--- NOTE | 2018-05-02 04:32 | NUR ---
pt had an uneventful night. reports no pain. no s/s of pain. pt had appropriate urine output throughout night. continent throughout night. K+ 4.0. neuro check unchanged- right leg unable to lift d/t sugery. PICC flushes well both red and purple. 4L NC sats stable. vitals stable. pts daughter reports pt has not had a BM in 4 days. no needs at this time. call light in reach
[2018-05-02 05:14] VITALS: BP 124/62; PULSE 63; TEMP 98
--- NOTE | 2018-05-02 07:29 | NUR ---
report given to MARICRUZ Chaidez. pt sleeping
[2018-05-02 07:39] VITALS: BP 130/55; PULSE 62; TEMP 97.8
--- NOTE | 2018-05-02 08:35 | NUR ---
Asssessment completed, alert/oriented, vital signs stable, denies pain, his morning FSBS was 41/ he does not report feeling low or knowing that he was low and stated he had eaten supper last night, we gave hime some juice and ordered berakfast/ on recheck at 0834 fsbs was 76 and breakfast should be arriving anytime/ will continue to monitor blood sugars, he did not run any fevers during night, lungs CTA in upper lobes and fine crackles noted to RLL, still on o2 at 4L. per NC and i have bumped down to 3L. and notified RT as patient is not on home oxygen at baseline, heart RRR/ distal pulses are palpable/ pedal pulses are weak, no edema noted, patient having good urine output, abdomen is soft and Non-tender to palpation, BS+ in all quadrants, daughter present in the room and has multiple questions and concerns, I have discussed plan of care and answered questions to the best of my ability, morning medications given, patient denies other needs at this time, will continue to monitor
[2018-05-02] MEDS ORDERED: IPRATROPIUM BROM3 M1 IH ×2 (10:37→10:38)
[2018-05-02] MEDS ORDERED: ELIQUIS 5MG PO (10:41)
[2018-05-02] MEDS ORDERED: TYLENOL 325MG325 MG PO (10:42)
[2018-05-02] MEDS ORDERED: BD POSIFLUSH SF10 ML IV (10:43)
[2018-05-02] MEDS ORDERED: LEADER CLE17 GM/Dose PO (10:43)
[2018-05-02] MEDS ORDERED: GLUTOSE 1515 GM PO (10:43)
[2018-05-02] MEDS ORDERED: COLACE 100100 MG/CAP PO (10:43)
[2018-05-02] MEDS ORDERED: PREDNISONE10 MG PO (10:45)
[2018-05-02] MEDS ORDERED: LEVEMIR FLEX100 U/ML SQ (10:46)
[2018-05-02] MEDS ORDERED: NOVOLOG FLEX100 U/ML SQ ×2 (10:46→12:10)
[2018-05-02] MEDS ORDERED: NORCO 325 MG-51 TAB PO (10:47)
[2018-05-02 11:40] LABS: CALCIUM 8.9 mg/dL (8.4-10.2); CREATININE, serum 0.72 mg/dL (0.66-1.25); POTASSIUM 4.2 mmol/L (3.4-5.0)
--- NOTE | 2018-05-02 13:51 | NUR ---
LELO attended clinical rounds to disucss discharge plan. Patient will discharge today to [facility] for long-term. LELO presented IM to patient and family. Patient's granddaughter, Tiffanie, signed but did not requested a copy. LELO contacted Dominique from [facility] to inform her of discharge and arrange transportation. Transportation was set up for 1pm and LELO faxed discharge orders.
--- NOTE | 2018-05-02 15:12 | NUR ---
patient transferring to [facility] for rehab, I gave report to receiving nurse Dominique, PICC line left in place and PICC care protocol orders sent with paperwork, family present at time of discharge
== END 2018-05-02 15:14 | DRG 871 ==
LOC: MEDICAL 23:40 → ICU 04-26 02:00 → MEDICAL 04-26 02:30 → ICU 04-26 02:30 → SURG 04-28 17:35 → ICU 04-28 17:50 → SURG 04-28 17:50 → MEDICAL 04-30 15:40 → SURG 04-30 15:40 → MEDICAL 04-30 15:40 → SURG 05-01 09:09 → MEDICAL 05-02 15:14
PROVIDERS: Family Medicine; Internal Medicine Pulmonary Disease; Nurse Practitioner; Nurse Practitioner Family; Physician Assistant; ADMIT Hospitalist
PROC: 02HV33Z Insertion of Infusion Device into Superior Vena Cava, Percutaneous Approach (ICD-10-PCS; principal; 2018-04-26)
DX: A41.9 Sepsis, unspecified organism (principal); J18.9 Pneumonia, unspecified organism; I26.99 Other pulmonary embolism without acute cor pulmonale; J96.01 Acute respiratory failure with hypoxia; J44.0 Chronic obstructive pulmonary disease with (acute) lower respiratory infection; J44.1 Chronic obstructive pulmonary disease with (acute) exacerbation; E87.1 Hypo-osmolality and hyponatremia; N17.9 Acute kidney failure, unspecified; I10 Essential (primary) hypertension; E11.649 Type 2 diabetes mellitus with hypoglycemia without coma; E87.6 Hypokalemia; Z85.110 Personal history of malignant carcinoid tumor of bronchus and lung; E78.5 Hyperlipidemia, unspecified; E03.9 Hypothyroidism, unspecified; F17.210 Nicotine dependence, cigarettes, uncomplicated; S72.001D Fracture of unspecified part of neck of right femur, subsequent encounter for closed fracture with routine healing; E11.65 Type 2 diabetes mellitus with hyperglycemia
CPT/HCPCS: 99223-AI; 99231-AI; 99232-AI; 99233-AI; 99239; C1751; J1644; J1650; J1815; J2543; J2920; J2930; J3370; J3475; J3480; J7030; J7050; J7512; Q9967

== ENCOUNTER → 2019-04-17 | Outpatient (CLI) | payer MEDICARE, OTHER ==
[~2019-04-17] MED LIST changes: +BD POSIFLUSH SF10 ML IV; +COLACE 100100 MG/CAP PO; +GLUTOSE 1515 GM PO; +IPRATROPIUM BROM3 M1 IH; +LEADER CLE17 GM/Dose PO; +LEVEMIR FLEX100 U/ML SQ; +NORCO 325 MG-51 TAB PO; +PREDNISONE10 MG PO; +TYLENOL 325MG325 MG PO
== END ==
LOC: COL.RAD 11:50
DX: I27.20 Pulmonary hypertension, unspecified (principal); J43.9 Emphysema, unspecified; J98.4 Other disorders of lung
CPT/HCPCS: A9540; A9567